=== PATIENT | female | born 1960 | race Caucasian/White ===

== ENCOUNTER → 2021-10-29 08:51 | Outpatient (CLI) | payer BC, SELFPAY ==
--- NOTE | ~2021-10-29 | XR_ITS ---
XR_[id number]_CR DATE: 10/29/2021 09:13 INDICATION: Neck pain TECHNIQUE: AP, open-mouth, lateral, swimmer views COMPARISON: 02/26/2018 cervical spine FINDINGS: There is straightening of the cervical spine. There is approximately 1.2 mm anterolisthesis at C2-3. There is mild to moderate loss of interspace height and moderately prominent posterior spurring at C3 -4. There is approximately 2.1 mm anterolisthesis at C4-5. There is anterior fusion at C5-6. There is severe degenerative disc disease at C6-7. There is uncovertebral joint spurring at facet hypertrophic degenerative change. C1 and C2 are normally aligned and the odontoid process is intact. No fracture or dislocation or lock ed facet or prevertebral soft tissue swelling. IMPRESSION: Straightening Status post anterior fusion at C5-6 Cervical spondylosis including severe degenerative disc disease at C6-7 Mild anterolisthesis at C2-3 and C4-5 Little interval change since 02/26/2018 Reviewed, dictated and finalized at [facility]. Reviewed, dictated and finalized at [facility].
== END ==
PROVIDERS: PCP Nurse Practitioner Family; Visit Provider Nurse Practitioner Family
DX: M47.892 Other spondylosis, cervical region (principal); Z98.1 Arthrodesis status
CPT/HCPCS: 72040

== ENCOUNTER → 2021-11-25 10:23 | Outpatient (CLI) | payer BC, SELFPAY ==
--- NOTE | ~2021-11-25 | MM_ITS ---
EXAMINATION: [place] [facility] [place] HISTORY: Screening mammogram TECHNIQUE: Craniocaudal and mediolateral oblique 3-D tomosynthesis images were obtained and synthetic 2-D images were generated. CAD analysis was submitted and interpreted. COMPARISON: 04/08/2010, 11/20/2008 BREAST PARENCHYMAL COMPOSITION: There are scattered areas of fibroglandular density. FINDINGS: There is no suspicious mass, calcification, or architectural distortion to suggest malignan cy in either breast. There has been no suspicious interval change. IMPRESSION: 1. No mammographic evidence of malignancy. 2. Recommend routine screening mammography in one year. BI-RADS Category 1: Negative Reviewed, dictated and finalized at location [facility].
== END ==
PROVIDERS: PCP Nurse Practitioner Family; Visit Provider Nurse Practitioner Family
DX: Z12.31 Encounter for screening mammogram for malignant neoplasm of breast (principal)
CPT/HCPCS: 77063; 77067

== ENCOUNTER → 2022-01-03 07:04 | Outpatient (CLI) | payer BC, SELFPAY ==
--- NOTE | ~2022-01-03 | MR_ITS ---
EXAMINATION: MR cervical spine wo con DATE: 01/03/2022 07:36 INDICATION: Degeneration of the cervical intervertebral discs left shoulder pain TECHNIQUE: Magnetic resonance imaging (MRI) of the cervical spine was performed without intravenous c ontrast. Sequences included sagittal T2-weighted FSE, sagittal T2-weighted FS FSE, sagittal T1-weight ed FSE, axial MERGE and axial T2-weighted FSE. COMPARISON: None FINDINGS: 102 mm anterolisthesis C2 on C3 and C4 on C5. 2 mm retrolisthesis C6 on C7. 7 anterior spinal fusion at C5-C6. Unfused vertebral body heights are normal. Moderate to severe disc height loss with degener ative endplate changes at C6-C7. Mild disc height loss at C2-C3 through C4-C5. Additional moderate di sc height loss at T1-T2 and mild disc height loss at T2-T3 through the T4-T5. Bone marrow signal int ensity is normal. Cord signal intensity is normal. Apical soft tissues are normal. The following disc levels are specifically discussed: C2-C3: Disc is mildly bulging. There is mild bilateral uncovertebral joint osteoarthritis. There is l eft facet joint osteoarthritis. Effusion with prominent hypertrophic change at the right C2-C3 facet joint. There is mild right neural foraminal stenosis. There is mild central canal stenosis. C3-C4: Disc is bulging, eccentric to the left. There is moderate right and severe left uncovertebral joint osteoarthritis. There is severe bilateral facet joint osteoarthritis. There is moderate to dre re left and mild to moderate right neural foraminal stenosis. There is mild central canal stenosis wi th indentation of the left ventral surface of the cord. C4-C5: Disc is bulging. There is mild left and moderate right uncovertebral joint osteoarthritis. The re is mild left and severe right facet joint osteoarthritis. There is mild left and moderate right ne ural foraminal stenosis. There is mild central canal stenosis with flattening of the ventral surface of the cord. C5-C6: Disc is fused with prominent hypertrophic changes in the left lateral recess. There is mild le ft and moderate right facet joint osteoarthritis. There is mild bilateral neural foraminal stenosis. There is mild central canal stenosis with flattening of the left ventral surface of the cord. C6-C7: Disc is bulging. There is moderate left and severe right uncovertebral joint osteoarthritis. T here is altered left and moderate right facet joint osteoarthritis. There is mild left and moderate r ight neural foraminal stenosis. There is mild central canal stenosis. C7-T1: The disc does not extend beyond the endplate margin. There is left and moderate right uncovert ebral joint osteoarthritis. There is altered left and moderate right facet joint osteoarthritis. Ther e is mild to moderate right neural foraminal stenosis. There is no central canal stenosis. T1-T2: Disc is bulging. There is mild left and severe right facet joint osteoarthritis. There is mild left and moderate right neural foraminal stenosis. There is mild central canal stenosis. T2-T3: Small central disc extrusion with disc material extending a few millimeters cephalad and cauda l to the level of the endplates. There is moderate left and severe right facet joint osteoarthritis. There is mild right neural foraminal stenosis. There is mild central canal stenosis. T3-T4: Moderate-sized central disc extrusion which slightly flattens the ventral surface of the cord. There is severe bilateral facet joint osteoarthritis. There is mild bilateral neural foraminal steno sis. There is mild central canal stenosis. T4-T5: Small right paracentral disc protrusion. There is severe bilateral facet joint osteoarthritis. There is mild left and moderate right neural foraminal stenosis. There is mild central canal stenosi s. IMPRESSION: 1. Moderate to severe cervical and upper thoracic spondylosis with C5-C6 anterior spinal fusion
== END ==
PROVIDERS: PCP Nurse Practitioner Family; Visit Provider Nurse Practitioner Family
DX: M50.322 Other cervical disc degeneration at C5-C6 level (principal)
CPT/HCPCS: 72141